=== PATIENT | female | born 1960 | race Caucasian/White ===

== ENCOUNTER 2016-06-03 20:28 | Emergency (ER) | payer BC ==
--- NOTE | 2016-06-03 20:50 | EDM.PDOC ---
ED HPI RENAL/ - General Chief Complaint: Genitourinary Problem Stated Complaint: UTI symptoms Time Seen by Provider: 06/03/16 20:49 Source of Information: Reports: Patient, RN, RN notes reviewed History Limitations: Reports: No limitations - History of Present Illness INITIAL COMMENTS - FREE TEXT/NARRATIVE: 55-year-old patient presents to the emergency room at [facility] complaining of dysuria that began a couple of hours ago. The patient states she concurrently has urgency, but no frequency. The patient did not notice any hematuria when her symptoms began. The patient states she does get bladder infections once or twice a year. No calcium metabolism disorders. No recent [place] catheter or instrumentation. The patient states that she does stay well hydrated. the patient denies any abdominal or pelvic pain. No flank pain. No fevers. Symptom Onset Date: 06/03/16 Symptom Onset Time: 18:00 Timing/Duration: Reports: Getting worse Quality: Reports: burning - Related Data Allergies/ADRs: Allergies Allergy/AdvReac Type Severity Reaction Status Date / Time Penicillins Allergy Other Verified 06/03/16 21:05 Home Meds: Home Meds Aspirin 81 mg PO DAILY 06/03/16 [History] Nitrofurantoin Macrocrystal [Macrodantin] 100 mg PO BID #12 capsule 06/03/16 [Rx ] Past Medical History - Past Health History Medical/Surgical History: Denies Medical/Surgical History Social & Family History - Tobacco Use Smoking Status *Q: Never Smoker ED ROS GENERAL - Review of Systems Review Of Systems: See Below Constitutional: Denies: fever, chills, weakness Respiratory: Denies: Shortness of Breath, Cough Cardiovascular: Denies: Chest pain, Palpitations GI/Abdominal: Denies: Abdominal pain, Nausea, Vomiting : Reports: dysuria, urgency. Denies: frequency, hematuria Skin: Reports: no symptoms Neurological: Reports: No Symptoms ED EXAM, RENAL/ - Physical Exam Exam: See Below Exam Limited By: No limitations General Appearance: alert, no apparent distress Respiratory/Chest: no respiratory distress, lungs clear, normal breath sounds Cardiovascular: regular rate, rhythm GI/Abdominal: normal bowel sounds, soft, non tender (Female) Exam: Deferred Neurological: alert, oriented Skin Exam: Warm, Dry, Intact, Normal color, No rash Course - Vital Signs Last Recorded V/S: Last Vital Signs Temp 35.7 C 06/03/16 20:45 Pulse 83 06/03/16 20:45 Resp 16 06/03/16 20:45 BP 129/65 06/03/16 20:45 Pulse Ox 99 06/03/16 20:45 - Orders/Labs/Meds Labs: Laboratory Tests 06/03/16 Range/Units 20:50 Urine Color Red H (YELLOW) Urine Appearance Cloudy H (CLEAR) Urine pH 6.0 (5.0-8.0) Ur Specific [place] >=1.030 Urine Protein 100 H (NEGATIVE) mg/dL Urine Glucose (UA) Negative (NEGATIVE) mg/dL Urine Ketones Negative (NEGATIVE) mg/dL Urine Occult Blood Large H (NEGATIVE) Urine Nitrite Negative (NEGATIVE) Urine Bilirubin Negative (NEGATIVE) Urine Urobilinogen 1.0 (0.2) EU/dL Ur Leukocyte Esterase Moderate H (NEGATIVE) Urine RBC Packed (NOT SEEN) /HPF Urine WBC Packed (NOT SEEN) /HPF Ur Squamous Epith Cells Rare (NEGATIVE) /HPF Amorphous Sediment Not seen Urine Mucus Not seen (NEGATIVE) /LPF Departure - Departure Time of Disposition: 21:18 Disposition: Home, Self-Care 01 Condition: good Clinical Impression: Urinary tract infection Qualifiers: Urinary tract infection type: acute cystitis Hematuria presence: with hematuria Qualified Code(s): N30.01 - Acute cystitis with hematuria Prescriptions: Nitrofurantoin Macrocrystal [Macrodantin] 100 mg PO BID #12 capsule Instructions: Urinary Tract Infection, Adult Referrals: Jessica Orourke PA-C [Primary Care Provider] - Forms: ED Department Discharge Additional Instructions: 1. Stay well hydrated and rest 2. Drink cranberry juice or use cranberry pills 3. May use OTC Cytex or AZO for bladder pain 4. May alternate Tylenol/Advil as needed 5. Take medications for the full coarse, even if symptoms are getting better 6. See your Primary as symptoms warrant - Problem List Review Problem List Initiated/Reviewed/Updated: Yes
[2016-06-03 21:05] VITALS: BP 129/65
[2016-06-03] MEDS ORDERED: Take Home: Nitrofurantoin Monohydrate/Macrocrystalline 100 MG, 2 Cap Pack PO ONE (21:21)
== END 2016-06-03 21:35 | disposition home or self-care (01) ==
LOC: VM.ED 20:28
DX: N30.01 Acute cystitis with hematuria (principal); Z88.0 Allergy status to penicillin; Z79.82 Long term (current) use of aspirin
CPT/HCPCS: 81001; 99283; A9270